=== PATIENT | female | born 1950 | race Caucasian/White ===

== ENCOUNTER 2017-12-05 18:51 | Inpatient (IN) | payer MEDICARE, OTHER ==
[~2017-12-05] VITALS: Ht 152.4 cm; Wt 103.4 kg
[2017-12-05 21:39] LABS: BASOPHILS % 0.2 % (0.0-1.0); EOSINOPHILS # (AUTO) 0.2 (0.0-0.4); EOSINOPHILS % 2.2 % (0.0-6.0); HEMATOCRIT 32.9 % (34.2-44.1); HEMOGLOBIN 10.5 g/dL (12.0-16.0); LYMPHOCYTES # (AUTO) 1.2 (1.0-3.2); LYMPHOCYTES % 11.8 % (18.0-39.1); MEAN CORPUSCULAR HEMOGLOBIN 30.3 pg (28-32); MEAN CORPUSCULAR HGB CONC 31.9 g/dL (31-35); MEAN CORPUSCULAR VOLUME 94.8 fL (81-99); MONOCYTES # (AUTO) 0.7 (0.2-0.8); MONOCYTES % 6.9 % (4.4-11.3); NEUTROPHILS # (AUTO) 7.7 (2.1-6.9); NEUTROPHILS % 78.5 % (38.7-80.0); PLATELET COUNT 189 x10e3/uL (140-360); RED BLOOD COUNT 3.47 x10e6/uL (3.6-5.1); RED CELL DISTRIBUTION WIDTH 12.8 % (11.7-14.4)
[2017-12-05 21:57] LABS: ALBUMIN 3.2 g/dL (3.5-5.0); ALBUMIN/GLOBULIN RATIO 0.7 (0.8-2.0); ANION GAP 30.9 mmol/L (8-16); CALCIUM 8.2 mg/dL (8.4-10.2); CREATININE, SERUM 13.76 mg/dL (0.57-1.11)
[2017-12-05] MEDS ORDERED: INSULIN REGULAR, HUMAN 100 UNIT/1 ML 3ML VIAL IV ONE (22:00)
[2017-12-05] MEDS ORDERED: DEXTROSE 50% SYRINGE 50 ML IV STA (22:00)
[2017-12-05] MEDS ORDERED: SODIUM BICARBONATE 8.4% INJ 50 ML SYR IV STA (22:00)
[2017-12-05] MEDS ORDERED: SOD POLYSTYRENE SULFONATE SUSP 15 GM/60 ML BTL PO ONE (22:00)
[2017-12-05] MEDS ORDERED: CALCIUM CHLORIDE 10% 1.36 MEQ/ML 10ML SYR IV STA (22:00)
[2017-12-05 22:01] LABS: POTASSIUM 6.9 mmol/L (3.5-5.1)
--- NOTE | 2017-12-05 22:02 | Diagnostic Imaging Report ---
EXAMINATION: CHEST SINGLE (PORTABLE) INDICATION: Shortness of breath, missed dialysis. COMPARISON: None FINDINGS: TUBES and LINES: None. LUNGS: Lungs are not well inflated. There are bibasilar atelectasis. There is perihilar interstitial opacities, consistent with interstitial edema. PLEURA: Small left pleural effusion HEART AND MEDIASTINUM: Cardiac size is moderately enlarged. BONES AND SOFT TISSUES: No acute osseous lesion. Soft tissues are unremarkable. UPPER ABDOMEN: No free air under the diaphragm. IMPRESSION: Findings are consistent with cardiogenic pulmonary edema. Superimposed infection in the left hemithorax is suspected. Signed by: Dr. Jose Santiago M.D. on 12/05/2017 9:59 PM
[2017-12-05 22:04] LABS: CREATINE KINASE MB 7.3 ng/mL (0-5.0)
[2017-12-05] MEDS ORDERED: ALBUTEROL SULF 0.083% NEB SOLN 3 ML NEB NEB STA (22:13)
[2017-12-05] MEDS ORDERED: ONDANSETRON HCL INJ 2 MG/ML VIAL IV PRN (22:45)
[2017-12-05] MEDS ORDERED: HYDRALAZINE HCL 20 MG/ML VIAL IV PRN (22:45)
--- OUTSIDE RECORDS SUMMARY | 2017-12-05 22:49 | XMS REPORT ---
Author Author [facility] Address Unknown Phone Unavailable Care Team Providers Care Unit Control Clerk Name Role Phone ANABELLEMeka Unavailable Unavailable Problems This patient has no known problems. Allergies, Adverse Reactions, Alerts This patient has no known allergies or adverse reactions. Medications This patient has no known medications. Results Test Description Test Time Test Comments Text Results Atomic Results Result Comments CHEST SINGLE (PORTABLE) 2017-12-05 21:57:00 [place] [address] Patient Name: LOIDA WILSON MR #: [id number] : 1950 Age/Sex: 67/F Req #: [id number] Adm Physician: Ordered by: NARCISO LE MD Report #: [id number] Location: ER Room/Bed: Procedure: [id number] DX/CHEST SINGLE (PORTABLE) Exam Date: Exam Time: REPORT STATUS: Signed EXAMINATION: CHEST SINGLE (PORTABLE) INDICATION: Shortness of breath, missed dialysis. COMPARISON: None FINDINGS: TUBES and LINES: None. LUNGS: Lungs are not well inflated. There are bibasilar atelectasis. There is perihilar interstitial opacities, consistent with interstitial edema. PLEURA: Small left pleural effusion HEART AND MEDIASTINUM: Cardiac size is moderately enlarged. BONES A ND SOFT TISSUES: No acute osseous lesion. Soft tissues are unremarkable. UPPER ABDOMEN: No free air under the diaphragm. IMPRESSION: Findings are consistent with cardiogenic pulmonary edema. Superimposed infection in the left hemithorax is suspected. Signed by: Dr. Jose Santiago M.D. on 12/05/2017 9:59 PM Dictated By: JOSE FREY MD 58 Transcribed By: MARY on 12/05/172158 COPY TO: NARCISO LE MD
[2017-12-06] VITALS (12 sets, daily range): BP systolic 107–188; BP diastolic 51–92
[2017-12-06 08:17] LABS: BASOPHILS % 0.2 % (0.0-1.0); EOSINOPHILS # (AUTO) 0.1 (0.0-0.4); EOSINOPHILS % 0.9 % (0.0-6.0); HEMATOCRIT 29.4 % (34.2-44.1); HEMOGLOBIN 9.7 g/dL (12.0-16.0); LYMPHOCYTES # (AUTO) 0.8 (1.0-3.2); MEAN CORPUSCULAR HEMOGLOBIN 30.9 pg (28-32); MEAN CORPUSCULAR VOLUME 93.6 fL (81-99); MONOCYTES # (AUTO) 0.7 (0.2-0.8); MONOCYTES % 7.3 % (4.4-11.3); NEUTROPHILS # (AUTO) 8.1 (2.1-6.9); NEUTROPHILS % 83.2 % (38.7-80.0); PLATELET COUNT 175 x10e3/uL (140-360); RED BLOOD COUNT 3.14 x10e6/uL (3.6-5.1); RED CELL DISTRIBUTION WIDTH 12.9 % (11.7-14.4)
[2017-12-06 08:44] LABS: ALBUMIN/GLOBULIN RATIO 0.7 (0.8-2.0); ANION GAP 30.6 mmol/L (8-16); CALCIUM 8.6 mg/dL (8.4-10.2); CREATININE, SERUM 14.3 mg/dL (0.57-1.11)
[2017-12-06 08:49] LABS: POTASSIUM 6.6 mmol/L (3.5-5.1)
[2017-12-06] MEDS ORDERED: SODIUM CHLORIDE 0.9% 1000ML 1,000 ML IV PRN (09:45)
[2017-12-06] MEDS ORDERED: MANNITOL 25% 12.5GM/50 ML VIAL IV PRN (09:45)
--- NOTE | 2017-12-06 09:46 | Consultation ---
DATE OF CONSULTATION: RENAL CONSULTATION Thank you for the consult, Dr. Gandhi. Ms. Godfrey is a pleasant, 67-year-old female, a patient visiting from [place], who was supposed to come to [facility] for her dialysis being set up while she is visiting [place]. The patient was not able to make it to dialysis. She arrived late evening in [place]. At the time that she arrived, she was symptomatic, getting more short of breath and not feeling well at all. She reported to [facility] and was found to have a potassium of 6.9, sodium 133, BUN 108, creatinine 13.76. The patient's potassium was treated urgently in the ER, and the patient's repeat labs are still pending. There was supposed to have been another potassium done 2 to 3 hours after the stat treatment was given in the ER; however, that lab was canceled apparently for unclear reasons. Repeat stat basic metabolic panel levels are still pending. The patient is seen in her room. She has shortness of breath. She does not have any chest pain. No fever. No chills. No abdominal pain. No diarrhea. No vomiting at this time. Renal consultation has been asked for to provide her dialysis while she is here. PAST MEDICAL HISTORY: Diabetes mellitus, hypertension, end-stage renal disease, left arm AV fistula for dialysis. ALLERGIES: NO KNOWN DRUG ALLERGIES. SOCIAL HISTORY: No tobacco. No alcohol use. FAMILY HISTORY: Noncontributory. REVIEW OF SYSTEMS: See HPI. Otherwise, all systems are negative. MEDICATIONS: Reviewed per chart. PHYSICAL EXAMINATION VITAL SIGNS: Blood pressure 160s/60, 50 heart rate, afebrile, 16 respirations. HEENT: No cervical lymphadenopathy. Moist-appearing oral mucosa. NECK: Supple, without masses. No JVD. SKIN: Moist, with good skin turgor. CHEST: Chest wall with good expansion. No chest wall tenderness. LUNGS: Rales bilaterally in the lung rodriguez. CARDIOVASCULAR: S1 and S2. No obvious gallop or murmur. ABDOMEN: Soft. Positive bowel sounds. Nontender. EXTREMITIES: No evidence of lower extremity edema. No clubbing. No cyanosis. NEUROLOGIC: Awake, alert, oriented x3. Grossly nonfocal exam. LABS: This lab is from last night. This morning's lab is still pending. Labs last night showed sodium 133, potassium 6.9, chloride 92, bicarb 17, BUN 108, creatinine 13.76, calcium 8.2, albumin 3.2. Hematology: H and H last night were 10.5, this morning 9.7, hematocrit 32.9, this morning 29.4 respectively. IMPRESSION AND PLAN 1. End-stage renal disease. Will need stat dialysis today. Will do 4 hours of dialysis on 1 potassium bath until potassium level is back. The patient's potassium was treated in the ER with calcium gluconate, IV insulin, IV D50, IV bicarbonate, Kayexalate as well as nebulized albuterol. I did discuss the case with the emergency room physician, Dr. Valdez. A repeat potassium was scheduled to be done about 2 to 3 hours after the stat medical treatment; however, that lab was apparently cancelled. This morning's potassium and other lab workup are still pending. 2. Hyperkalemia. Medically treated in the ER as outlined above. Repeat levels are still pending. Will do stat dialysis and then recheck labs again in the morning tomorrow. 3. Hypertension. Continue home medications. 4. Anemia of chronic disease, stable. Continue to monitor. 5. Metabolic acidosis. Will correct with dialysis. Thank you, once again, for the consultation. I will follow the patient closely along with you and make further recommendations. The patient was seen at the start of dialysis treatment. She is tolerating it without any problems. Job#: [id number] cc:ACACIA GANDHI MD
[2017-12-06] MEDS ORDERED: SYNTHROID100 MCG PO (11:19)
[2017-12-06] MEDS ORDERED: ISOSORBIDE MONO30 MG PO (11:19)
[2017-12-06] MEDS ORDERED: CALCIUM ACETAT667 M1 PO ×2 (11:19→17:02)
[2017-12-06] MEDS ORDERED: LYRICA75 MG PO (11:19)
[2017-12-06] MEDS ORDERED: SIMVASTATIN40 MG PO (11:19)
[2017-12-06] MEDS ORDERED: HUMALOG100 UNIT/3 SQ (11:45)
[2017-12-06] MEDS ORDERED: ASPIR-LOW81 MG PO (11:48)
[2017-12-06] MEDS ORDERED: CEPHALEXIN250 MG PO (11:56)
[2017-12-06] MEDS ORDERED: IBUPROFEN200 MG PO (11:56)
[2017-12-06] MEDS ORDERED: D3 DOTS2000 UNIT PO (11:56)
[2017-12-06] MEDS ORDERED: TRESIBA SC (11:59)
[2017-12-06] MEDS ORDERED: NOVOLOG FLEXPEN SC (12:20)
[2017-12-06] MEDS ORDERED: NON-FORMULARY MEDICATION (Ibuprofen 200 MG) PO PRN (12:30)
[2017-12-06] MEDS ORDERED: IBUPROFEN 200 MG TAB PO PRN (12:45)
[2017-12-06] MEDS ORDERED: CEPHALEXIN 250 MG PO SCH (15:00)
--- NOTE | 2017-12-06 15:27 | History and Physical ---
CHIEF COMPLAINT: Shortness of breath. HISTORY OF PRESENT ILLNESS: This is a 67-year-old female who has a past medical history of end-stage renal disease on dialysis, who is here from [place] visiting family. Again, she become very short of breath last night. Patient reports that she has missed several sessions on hemodialysis en route here. She does have schedule where she is getting her hemodialysis here in [place]. She reports having some shortness of breath ongoing for the last several days and came into [facility] for further evaluation. Patient was found to have elevated potassium, requiring hemodialysis this morning. Patient was seen and evaluated at bedside on the medical floor, currently very poor historian. She had some significant anasarca on examination. She denies any chest pain, palpitation, nausea, or vomiting. Patient's vital signs were stable when I evaluated her. REVIEW OF SYSTEMS PERTINENT POSITIVES: Shortness of breath, anasarca, significant edema. PERTINENT NEGATIVES: Denies any chest pain, palpitation, nausea, vomiting, diarrhea, dysuria, hematuria, frequency, urgency, lightheadedness, dizziness, abdominal pain, headache, cough, congestion, fever, or any other complaints. The rest of 14-point review of systems have reviewed the patient and are negative. ALLERGIES: NO KNOWN DRUG ALLERGIES. HOME MEDICATIONS 1. Aspirin 81 mg daily. 2. PhosLo 667 mg p.o. t.i.d. with meals. 3. Isosorbide mononitrate 30 mg q.24 hours. 4. Synthroid 100 mcg. 5. Lyrica 150 mg p.o. b.i.d. 6. Simvastatin 40 mg daily. 7. Keflex 250 mg p.o. t.i.d. 8. Cholecalciferol 3000 units daily. 9. Tarceva 48 unit subcu daily. 10. NovoLog sliding scale. PAST MEDICAL HISTORY: Type 2 diabetes, hypertension, end-stage renal disease on dialysis, anemia in ESRD secondary to hyperparathyroidism, and peripheral neuropathy. PAST SURGICAL HISTORY: She has tunnel dialysis catheter AV fistula. FAMILY HISTORY: Hypertension and diabetes. SOCIAL HISTORY: No drugs. No alcohol. Does not smoke. LABORATORY DATA: Lab findings show white count is 9.7, hemoglobin 9.7, hematocrit is 29, platelets of 175. Chemistry: Sodium 135, potassium 6.6, chloride 92, bicarb 19, anion gap is 30, BUN is 114, creatinine is 14.3, glucose is 165, calcium 8.6, total bilirubin is 0.5, AST is 14, ALT is 8. Troponin was 0.044, CK was 164, CK-MB 7.3. Total protein 7.3. Albumin was 3. Serology with hepatitis panel is pending. IMAGING STUDIES: Chest x-ray findings consistent with cardiogenic pulmonary edema. Superimposed infection in the left hemothorax is suspected. PHYSICAL EXAMINATION VITAL SIGNS: Temperature is 97.6, respiratory rate is 18, blood pressure , pulse ox 97% on 2 liters nasal cannula. GENERAL: In no acute distress, alert, and oriented x3, cooperative on examination. HEENT: Head normocephalic, atraumatic. Eyes: Pupils equal, round and reactive to light bilaterally. Extraocular movements intact bilaterally. NECK: Supple with good range of motion. No evidence of any erythema or exudates in the posterior pharynx. Has poor dentition. PULMONARY: She has positive rales, fine crackles. No rhonchi. Expiratory effort was good. CARDIOVASCULAR: Positive S1, S2. No murmurs, rubs, or gallops appreciated. ABDOMEN: Soft, nondistended, and nontender to palpation. Bowel sounds present. MUSCULOSKELETAL: Strength is 5/5 throughout. No evidence of any musculoskeletal deficit on examination. No weakness appreciated. NEUROLOGICAL: Cranial nerves II through XII grossly intact. No evidence of any neurological deficit on exam. SKIN: Intact. Warm to touch. Good cap refill. PSYCHIATRIC: Normal affect. EXTREMITIES: She has anasarca throughout. IMPRESSION 1. Respiratory distress secondary to volume overload, missing hemodialysis. 2. End-stage renal disease, on dialysis. 3. Anemia of end-stage renal disease. 4. Type 2 diabetes. 5. Hypertension. 6. Medical noncompliance. 7. Hypothyroidism. PLAN: At this time, nephrology was consulted and the patient was receiving hemodialysis as we speak. She was found to be hypokalemic with anasarca and shortness of breath, in which 4 liters is being removed at this time. We will get a.m. labs and likely would need dialysis tomorrow, though she is scheduled for tomorrow afternoon. It is best advisable to keep her here to gt dialysis because she may still be short of breath prior to discharge home. Also, I would like to potassium and see where she is prior to being discharged. We are going to resume all her home medications including all antihypertensive medications as well as her insulin. We are going to put her on a sliding scale. Get a.m. labs. Patient will likely be here overnight and will be discharged tomorrow after hemodialysis. Put her on a renal diet and monitor closely. Job#: [id number] VAS
[2017-12-06] MEDS: CEPHALEXIN MONOHYDRATE 250 MG CAP PO SCH ×2 (16:37→21:00)
[2017-12-06] MEDS: ISOSORBIDE MONONITRATE 30 MG TAB CR PO SCH (16:38)
[2017-12-06] MEDS: PREGABALIN 75 MG CAP PO SCH (16:47)
[2017-12-06] MEDS ORDERED: CALCIUM ACETATE 667 MG GELCAP PO SCH (17:00)
[2017-12-06] MEDS: CALCIUM ACETATE 667 MG GELCAP PO SCH (17:50)
[2017-12-06] MEDS ORDERED: SIMVASTATIN 40 MG TAB PO SCH (21:00)
[2017-12-06] MEDS ORDERED: CALCIUM ACETATE 667 MG GELCAP PO PRN (21:00)
[2017-12-07] VITALS (7 sets, daily range): BP systolic 95–163; BP diastolic 58–76
[2017-12-07 05:21] LABS: BASOPHILS % 0.6 % (0.0-1.0); EOSINOPHILS # (AUTO) 0.3 (0.0-0.4); EOSINOPHILS % 4.1 % (0.0-6.0); HEMATOCRIT 31.1 % (34.2-44.1); HEMOGLOBIN 10.1 g/dL (12.0-16.0); LYMPHOCYTES # (AUTO) 1.4 (1.0-3.2); LYMPHOCYTES % 19.1 % (18.0-39.1); MEAN CORPUSCULAR HEMOGLOBIN 30.2 pg (28-32); MEAN CORPUSCULAR HGB CONC 32.5 g/dL (31-35); MEAN CORPUSCULAR VOLUME 93.1 fL (81-99); MONOCYTES # (AUTO) 0.8 (0.2-0.8); MONOCYTES % 10.7 % (4.4-11.3); NEUTROPHILS # (AUTO) 4.7 (2.1-6.9); NEUTROPHILS % 65.2 % (38.7-80.0); PLATELET COUNT 180 x10e3/uL (140-360); RED BLOOD COUNT 3.34 x10e6/uL (3.6-5.1); RED CELL DISTRIBUTION WIDTH 12.7 % (11.7-14.4)
[2017-12-07] MEDS: CEPHALEXIN MONOHYDRATE 250 MG CAP PO SCH ×2 (05:27→14:23)
[2017-12-07 05:44] LABS: ANION GAP 24.6 mmol/L (8-16); CALCIUM 8.6 mg/dL (8.4-10.2); CREATININE, SERUM 8.6 mg/dL (0.57-1.11); PHOSPHORUS 8.1 MG/DL (2.3-4.7); POTASSIUM 4.6 mmol/L (3.5-5.1)
[2017-12-07] MEDS ORDERED: LEVOTHYROXINE SODIUM 100 MCG TAB PO SCH (06:00)
[2017-12-07] MEDS: CALCIUM ACETATE 667 MG GELCAP PO SCH ×2 (08:00→12:40)
[2017-12-07] MEDS: PREGABALIN 75 MG CAP PO SCH (08:30)
[2017-12-07] MEDS ORDERED: ISOSORBIDE MONONITRATE 30 MG TAB CR PO SCH (09:00)
[2017-12-07] MEDS: ISOSORBIDE MONONITRATE 30 MG TAB CR PO SCH (09:00)
[2017-12-07] MEDS ORDERED: INSULIN DEGLUDEC SC SCH ×2 (09:00)
[2017-12-07] MEDS ORDERED: ASPIRIN 81 MG CHEW TAB PO SCH (09:00)
--- NOTE | 2017-12-07 10:38 | Progress Note ---
DATE: December 07, 2017 RENAL PROGRESS NOTE SUBJECTIVE: Followed for end-stage renal disease. Tolerating dialysis. Seen on dialysis treatment. Dialysis is being done today as well. Dialysis treatment was done yesterday as well for fluid overload and hyperkalemia. Patient is scheduled to apparently be discharged either today or tomorrow. She is supposed to be in [place] next week on Sunday with her dialysis being arranged somewhere in [place]. Patient's next dialysis apparently is going to be on Sunday. No nausea. No vomiting. Breathing has improved. OBJECTIVE VITAL SIGNS: Noted and are stable. LUNGS: Minimal rales at the bases bilaterally. CARDIOVASCULAR: S1 and S2. No rub. ABDOMEN: Soft and nontender. EXTREMITIES: One plus edema. LABS: Have been reviewed. Potassium is 4.6. Hemoglobin 10.1. Creatinine 8.6, BUN 53. IMPRESSION AND PLAN 1. End-stage renal disease: Continue dialysis today and then if she is still here on Sunday next week, will do dialysis on Sunday, Sunday and Sunday. However, she likely will get discharged over the weekend. She is going to follow up in [place] for her outpatient dialysis. 2. Hypertension: Blood pressure is stable. 3. Anemia of chronic disease, stable. 4. Fluid overload: Has improved. Will also challenge today and do ultrafiltration of about 4 L today. Job#: [id number] ROBEL
--- NOTE | 2017-12-07 16:22 | Discharge Summary ---
FINAL DISCHARGE DIAGNOSES 1. Acute respiratory distress secondary to volume overload after missing hemodialysis. 1. End-stage renal disease on dialysis. 2. Hyperkalemia. 3. Anemia of end-stage renal disease. 4. Type 2 diabetes. 5. Hypertension. 6. Hypothyroidism. CONSULTANTS: Nephrology. VITAL SIGNS: Temperature is 98.4, pulse 54, respiratory rate is 20, blood pressure is 156/67, pulse oximetry 100% on room air. LAB FINDINGS: Show white count is 7.2, hemoglobin 10.1, hematocrit 31, platelets of 180,000. Chemistry: Sodium 136, potassium 4.6. On admission, potassium was 6.9 and now 4.6, chloride 92, bicarb 24, anion gap of 24, BUN 53, creatinine 0.6. Glucose is 61. Phosphorus was 8.1. Magnesium is 2. Calcium 8.6. Her LFTs were normal. Total bilirubin was normal. Troponin was 0.044. Albumin was 3. Micro: None. IMAGING STUDIES: Chest x-ray shows findings consistent with pulmonary edema. HOSPITAL COURSE: A 67-year-old female who is currently on vacation from [place]. Comes in with underlying shortness of breath ongoing for the last several days prior to arrival to the ED here. Patient that has been scheduled with multiple dialysis units while she was here visiting family here in [place]. She missed her last treatment. She came in with significant respiratory distress requiring hemodialysis. Nephrology was consulted. Patient was also found to be hypercalcemic as well. Patient received 2 hemodialysis treatments prior to discharge home and her potassium on discharge before her second dialysis treatment was 4.6. She is feeling much better now with no other complaints. In addition her diabetes and hypertension were well managed and controlled. The patient had no other complaints prior to discharge home. She was ready to go home. She was breathing back to normal baseline with no other issues. On the day of discharge, vital signs stable, labs remained stable. The patient was evaluated and had no other complaints. The patient verbalized understanding and agreed to plan of care. She is to follow up accordingly as an outpatient with primary care physician in one week. Her normal chair time is scheduled as per schedule. CONDITION ON DISCHARGE: Stable. DIET: Heart Healthy Renal. In the event of any worsening symptoms, the patient was advised to come back to the Emergency Department for further evaluation. This discharge summary took greater than 35 minutes. FILIPPO WALLACE MD Job#: [id number] SIDDHARTHA
== END 2017-12-07 16:05 | disposition home or self-care (01) | DRG 640 ==
LOC: ER 18:51 → ERHOLD 22:46 → IMCU 12-06 01:38
PROVIDERS: ADMIT Internal Medicine; ATTEND Internal Medicine
PROC: 5A1D70Z Performance of Urinary Filtration, Intermittent, Less than 6 Hours Per Day (ICD-10-PCS; principal; 2017-12-06)
PROC: 5A1D70Z Performance of Urinary Filtration, Intermittent, Less than 6 Hours Per Day (ICD-10-PCS; 2017-12-07)
DX: E87.5 Hyperkalemia (principal); N18.6 End stage renal disease; I12.0 Hypertensive chronic kidney disease with stage 5 chronic kidney disease or end stage renal disease; N25.81 Secondary hyperparathyroidism of renal origin; E11.22 Type 2 diabetes mellitus with diabetic chronic kidney disease; Z99.2 Dependence on renal dialysis; Z79.4 Long term (current) use of insulin; D63.1 Anemia in chronic kidney disease; E11.40 Type 2 diabetes mellitus with diabetic neuropathy, unspecified; Z91.15 Patient's noncompliance with renal dialysis; E03.9 Hypothyroidism, unspecified; Z79.52 Long term (current) use of systemic steroids; I27.20 Pulmonary hypertension, unspecified; E83.52 Hypercalcemia
CPT/HCPCS: 36415; 71045; 80048; 80053; 82550; 82553; 82948; 83735; 83880; 84100; 84484; 85025; 86704; 86706; 87340; 90962; 93005; 94644; 99284; J0360; J2150; J7030; J7799